=== PATIENT | female | born 2000 | race Two or more races ===

== ENCOUNTER 2024-04-06 09:36 | Emergency (ER) | payer OTHER ==
[~2024-04-06] VITALS: Ht 160 cm; Wt 49.9 kg
[~2024-04-06 09:36] MED LIST: ALBUTEROL2.5 MG/3 M IH; BUDESONIDE0.5 MG/2 M IH
[2024-04-06] MEDS ORDERED: CODEINE PHOSPHATE/GUAIFENESIN 5 ML ML PO STA (10:41)
[2024-04-06] MEDS ORDERED: METHYLPREDNISOLONE SOD SUCC 125 MG VIAL IV STA (10:41)
[2024-04-06] MEDS ORDERED: CETIRIZINE HCL 5 MG/5 ML ML PO STA (10:42)
[2024-04-06] MEDS ORDERED: ACETAMINOPHEN 500 MG GEL..CAP PO STA (10:42)
[2024-04-06 12:50] LABS: HEMATOCRIT 38.6 % (36.0-45.00); HEMOGLOBIN 12.5 g/dL (12.0-15.00); MEAN CELL VOLUME 79.2 fL (80.00-100.00); MEAN CORPUSCULAR HEMOGLOBIN 25.6 pg (27.00-32.0); MEAN CORPUSCULAR HGB CONC 32.4 g/dl (32.0-36.0); PLATELET COUNT 142 K/uL (150-450); RED BLOOD COUNT 4.88 M/uL (4.00-6.00); RED CELL DISTRIBUTION WIDTH 14.2 % (11.5-14.5)
[2024-04-06] MEDS ORDERED: ACETAMINOPHEN500 M2 PO (14:29)
[2024-04-06] MEDS ORDERED: MEDROLPACK PO (14:29)
[2024-04-06] MEDS ORDERED: AZITHROMYCIN500 MG PO (14:29)
[2024-04-06] MEDS ORDERED: ZYRTEC10 MG PO (14:29)
[2024-04-06] MEDS ORDERED: LEVALBUTER0.63 MG/3 IH (14:29)
[2024-04-06] MEDS ORDERED: MUCINEX DM ER1 EAC1 PO (14:29)
== END 2024-04-06 15:10 | disposition home or self-care (01) ==
LOC: ER 09:38
PROVIDERS: General Practice
DX: B34.9 Viral infection, unspecified (principal); J11.1 Influenza due to unidentified influenza virus with other respiratory manifestations; Z20.822 Contact with and (suspected) exposure to COVID-19